=== PATIENT | female | born 1975 | race Caucasian/White ===

== ENCOUNTER 2023-01-30 13:27 | Outpatient (RCR) | payer OTHER ==
[2023-01-30 13:11] LABS: BASOPHILS # (AUTO) 0.1 (0.0-0.1); BASOPHILS % 0.6 % (0.0-1.0); EOSINOPHILS # (AUTO) 0.3 (0.0-0.4); EOSINOPHILS % 3.7 % (0.0-6.0); HEMATOCRIT 42.9 % (34.2-44.1); HEMOGLOBIN 14.8 g/dL (12.0-16.0); LYMPHOCYTES # (AUTO) 2.1 (1.0-3.2); LYMPHOCYTES % 25.9 % (18.0-39.1); MEAN CORPUSCULAR HEMOGLOBIN 29.1 pg (28-32); MEAN CORPUSCULAR HGB CONC 34.5 g/dL (31-35); MEAN CORPUSCULAR VOLUME 84.3 fL (81-99); MONOCYTES # (AUTO) 0.4 (0.2-0.8); MONOCYTES % 4.8 % (4.4-11.3); NEUTROPHILS # (AUTO) 5.3 (2.1-6.9); NEUTROPHILS % 64.8 % (38.7-80.0); PLATELET COUNT 330 x10e3/uL (140-360); RED BLOOD COUNT 5.09 x10e6/uL (3.6-5.1); RED CELL DISTRIBUTION WIDTH 17.4 % (11.7-14.4)
[~2023-01-30 13:27] MED LIST: LIDOCAINE VISC 2% SOLN 15 ML UDC ONE
[2023-01-30 13:33] LABS: ALBUMIN 3.1 g/dL (3.5-5.0); ALBUMIN/GLOBULIN RATIO 0.6 (0.8-2.0); ANION GAP 15.6 mmol/L (8-16); CALCIUM 9.3 mg/dL (8.4-10.2); CREATININE, SERUM 0.62 mg/dL (0.57-1.11); POTASSIUM 3.6 mmol/L (3.5-5.1)
== END 2023-02-01 ==
LOC: WCC 13:27
PROVIDERS: ATTEND Internal Medicine Infectious Disease
DX: L89.324 Pressure ulcer of left buttock, stage 4 (principal); L89.314 Pressure ulcer of right buttock, stage 4; L89.154 Pressure ulcer of sacral region, stage 4
CPT/HCPCS: 36415; 80053; 83036; 85025

== ENCOUNTER 2023-02-27 09:00 | Outpatient (RCR) | payer OTHER ==
[2023-02-27] MEDS ORDERED: LIDOCAINE VISC 2% SOLN 15 ML UDC ONE (13:38)
== END 2023-03-04 ==
LOC: WCC 09:00
PROVIDERS: ATTEND Internal Medicine Infectious Disease
DX: L89.324 Pressure ulcer of left buttock, stage 4 (principal); L89.314 Pressure ulcer of right buttock, stage 4; L89.154 Pressure ulcer of sacral region, stage 4; S90.811A Abrasion, right foot, initial encounter
CPT/HCPCS: 83036; 84134

== ENCOUNTER 2023-03-27 09:31 | Outpatient (RCR) | payer OTHER | END 2023-04-03 | LOC: WCC 09:31 | PROVIDERS: ATTEND Internal Medicine Infectious Disease | DX: L89.324 Pressure ulcer of left buttock, stage 4 (principal); L89.314 Pressure ulcer of right buttock, stage 4; L89.154 Pressure ulcer of sacral region, stage 4; S90.811A Abrasion, right foot, initial encounter ==

== ENCOUNTER 2023-07-10 08:53 | Outpatient (RCR) | payer OTHER ==
[2023-07-10] MEDS ORDERED: LIDOCAINE VISC 2% SOLN 15 ML UDC ONE (12:28)
== END 2023-08-04 ==
LOC: WCC 08:53
PROVIDERS: ATTEND Internal Medicine Infectious Disease
DX: L89.324 Pressure ulcer of left buttock, stage 4 (principal); L89.314 Pressure ulcer of right buttock, stage 4; L89.154 Pressure ulcer of sacral region, stage 4